=== PATIENT | male | born 1980 | race Two or more races ===

== ENCOUNTER 2018-07-23 05:44 | Emergency (ER) | payer SELFPAY ==
[~2018-07-23] VITALS: Ht 185.4 cm; Wt 94.8 kg
--- NOTE | 2018-07-23 06:03 | NUR ---
PATIENT ARRIVED WALKIGN TO ER WITH C/O LEFT HEEL DISCOMFORT. S/P HEEL FRACTURE 3 WEEKS PER PATIENT, GIVEN A CAST AND WAS SUPPOSED TO FOLLOW UP FOR A FOOT BOOT. PATIENT WAS NOT ABLE TO GET A FOOT BOOT AND REMOVED CAST YESTERDAY BY HIMSELF. STATES WANTS TO MAKE SURE ITS NOT GETTING WORSE. DR GONZALEZ AT [facility] FOR MSE AT THIS TIME.
--- NOTE | 2018-07-23 06:56 | NUR ---
SPOKE WITH YONATHAN IN X-RAY, STATES WILL CONTACT [email or web address].
--- NOTE | 2018-07-23 07:07 | NUR ---
REPORT GIVEN TO ANNY RIOJAS.
--- NOTE | 2018-07-23 07:15 | NUR ---
Received AOx4, pending U/S scans at this time,
--- NOTE | 2018-07-23 08:10 | NUR ---
Patient is eating breakfast tray with good appetite, pending disposition@this time.
--- NOTE | 2018-07-23 08:20 | NUR ---
Patient discharged to home in stable conditon. Written and verbal after care instructions given to patient. Patient verbalizes understanding of instructions.
== END 2018-07-23 08:21 | disposition home or self-care (01) ==
LOC: ER 05:50
DX: S92.002A Unspecified fracture of left calcaneus, initial encounter for closed fracture (principal); X58.XXXA Exposure to other specified factors, initial encounter; Y93.39 Activity, other involving climbing, rappelling and jumping off; Y92.89 Other specified places as the place of occurrence of the external cause; Y99.8 Other external cause status
CPT/HCPCS: 73600; 73620; A4663